=== PATIENT | male | born 2000 | race Two or more races ===

== ENCOUNTER 2021-01-11 20:27 | Emergency (ER) | payer OTHER ==
[~2021-01-11] VITALS: Ht 167.6 cm; Wt 59.0 kg
[2021-01-11 21:35] VITALS: BP 144/76
== END 2021-01-11 22:50 | disposition home or self-care (01) ==
LOC: ER 20:27
DX: S90.851A Superficial foreign body, right foot, initial encounter (principal); W34.010A Accidental discharge of airgun, initial encounter; Y93.89 Activity, other specified; Y92.89 Other specified places as the place of occurrence of the external cause; Y99.8 Other external cause status
CPT/HCPCS: 73630